=== PATIENT | male | born 1985 | race Caucasian/White ===

== ENCOUNTER 2022-03-06 15:24 | Emergency (ER) | payer MEDICAID ==
[~2022-03-06] VITALS: Ht 167.6 cm; Wt 108.0 kg
[2022-03-06] MEDS ORDERED: FAMOTIDINE 20MG/2ML VIAL IV ONE (15:45)
[2022-03-06] MEDS ORDERED: EPINEPHRINE 1:1000 1 MG/ML AMP IM ONE (15:45)
[2022-03-06] MEDS ORDERED: SODIUM CHLORIDE 0.9% 1,000 ML IV ONE (15:45)
[2022-03-06] MEDS ORDERED: DIPHENHYDRAMINE 50MG/ML VIAL IV ONE (15:45)
[2022-03-06] MEDS ORDERED: DEXAMETHASONE 4MG/ML 1ML VIAL IV SCH (17:00)
[2022-03-06] MEDS ORDERED: ONDANSETRON 4MG ODT PO ONE (18:15)
[2022-03-06] MEDS ORDERED: ONDANSETRON HCL 4MG/2ML INJ IV ONE (18:30)
[2022-03-06] MEDS ORDERED: DEXAMETHASONE 10 MG/ML VIAL IV ONE (18:45)
[2022-03-06] MEDS ORDERED: FAMO-135 MT (19:53)
[2022-03-06] MEDS ORDERED: EPIN0.3P3 IM (19:53)
[2022-03-06] MEDS ORDERED: P20 MT (19:53)
[2022-03-06] MEDS ORDERED: DIPH25CA83 MT (19:53)
[2022-03-06 20:13] VITALS: BP 124/68
== END 2022-03-06 20:28 | disposition home or self-care (01) ==
LOC: ER 15:24
DX: T78.2XXA Anaphylactic shock, unspecified, initial encounter (principal); X58.XXXA Exposure to other specified factors, initial encounter; R21 Rash and other nonspecific skin eruption; R06.02 Shortness of breath
CPT/HCPCS: 96361; 96372; 96374; 96375; 96376; 99291; J1100; J1200; J2405; J3490; J7030